=== PATIENT | female | born 1980 | race Hispanic/Latino ===

== ENCOUNTER 2022-07-02 21:21 | Observation (INO) | payer SELFPAY ==
[~2022-07-02 21:21] MED LIST: Iopamidol-370 76% 500 ML 1 ML ONE
[2022-07-02 22:09] LABS: #Lymphocytes 1.9 thou/uL (1.20-3.40); #Monocytes 0.7 thou/uL (0.11-0.59); #Neutrophils 6.7 thou/uL (1.40-6.50); %Basophils 0.5 % (0.0-1.0); %Eosinophils 0.4 % (0.0-10.0); %Lymphocytes 20.3 % (21.0-51.0); %Monocytes 7.6 % (0.0-10.0); %Neutrophils 71.3 % (42.0-75.0); Hemoglobin 12.3 g/dL (12.0-16.0); Mean Corpuscular HGB CONC 33.2 g/dL (32.0-36.0); Mean Corpuscular Hemoglobin 28.9 pg (27.0-31.0); Mean Platelet Volume 8.1 fL (7.4-10.4); Platelet Count 287 10x3/uL (130-400); RBC Distribution Width 13.8 % (11.5-14.5); Red Blood Cell (RBC) Count 4.25 mill/uL (4.20-5.40); White Blood Cell (WBC) Count 9.3 10x3/uL (4.8-10.8)
[2022-07-02 22:30] LABS: ALT (SGPT) 197 U/L (8-55); AST (SGOT) 366 U/L (5-34); Albumin 4.2 g/dL (3.5-5.0); Alkaline Phosphatase 125 U/L (40-110); Anion Gap 15 mmol/L (10-20); BUN (Urea Nitrogen) 11 mg/dL (7.0-18.7); Bilirubin, Total 0.6 mg/dL (0.2-1.2); Calc. Creatinine Clearance 0 mL/min (70-130); Carbon Dioxide 22 mmol/L (22-29); Chloride 107 mmol/L (98-107); Estimated GFR 108; Globulin 3.7 g/dL (2.4-3.5); Glucose 98 mg/dL (70-105); Lipase 57 U/L (8-78); Potassium 3.6 mmol/L (3.5-5.1); Protein, Total 7.9 g/dL (6.0-8.3); Sodium 140 mmol/L (136-145)
[2022-07-02 22:52] LABS: BHCG - Serum Negative (NEGATIVE); Pregs Control Background? CLEAR/WHITE (CLR/WHITE); Pregs Control Bar Appear? YES (CONTROL BAR)
[2022-07-02] MEDS ORDERED: Ondansetron PF 4 MG/2 ML Vial ONE (23:20)
[2022-07-02] MEDS ORDERED: Ketorolac Tromethamine 30 MG/ML VIAL ONE (23:20)
[2022-07-02 23:52] LABS: Bilirubin Negative (Negative); Blood, Urine Negative (Negative); Clarity Turbid (Clear); Glucose, Urine (Dipstick) Normal (Negative); Ketone, Urine Negative (Negative); Leukocyte Negative Leu/uL (Negative); Nitrite Negative (Negative); Protein, Urine (Dipstick) 10 mg/dL (Neg-Trace); Specific Gravity, Urine 1.029 (1.002-1.036); Urobilinogen Normal mg/dL (Less than 2)
[2022-07-03] MEDS ORDERED: Morphine 4 MG/ML VIAL ONE (01:01)
[2022-07-03] MEDS ORDERED: Piperacillin/Tazobactam 3.375 GM VIAL ONE ×2 (02:22→13:39)
[2022-07-03 05:08] VITALS: BMI 33.7
[2022-07-03] MEDS ORDERED: Morphine 2 MG/ML VIAL SLOW IVP PRN (05:21)
[2022-07-03] MEDS ORDERED: Ketorolac Tromethamine 30 MG/ML VIAL IVP PRN ×2 (05:21→07:45)
[2022-07-03] MEDS ORDERED: Ondansetron ODT 4 MG TAB SL PRN (05:30)
[2022-07-03] MEDS ORDERED: Ondansetron PF 4 MG/2 ML Vial IVP PRN ×2 (05:30→16:30)
[2022-07-03] MEDS ORDERED: Sodium Chloride 0.9% 1,000 ML IV SCH (05:30)
[2022-07-03] MEDS ORDERED: Piperacillin/Tazobactam 3.375 GM in Sodium Chloride 0.9% 100 ML IVPB SCH (06:00)
[2022-07-03 06:34] LABS: SARS-CoV-2 NAA Rapid Test Not Detected (NotDetected)
[2022-07-03] MEDS ORDERED: Morphine 4 MG/ML VIAL SLOW IVP PRN ×2 (07:45→16:30)
[2022-07-03] MEDS ORDERED: Sodium Chloride 0.9% 100 ML ONE (13:39)
[2022-07-03] MEDS ORDERED: Iopamidol 30 ML ONE (13:57)
[2022-07-03] MEDS ORDERED: Bupivacaine/Epinephrine 0.25% 30 ML VIAL ONE (13:57)
[2022-07-03] MEDS ORDERED: ePHEDrine 50 MG/ML VIAL ONE (14:17)
[2022-07-03] MEDS ORDERED: Glycopyrrolate 0.2 MG/ML 5 ML SYRINGE ONE (14:17)
[2022-07-03] MEDS ORDERED: Ketorolac Tromethamine 30 MG/ML VIAL ONE (14:17)
[2022-07-03] MEDS ORDERED: Ondansetron PF 4 MG/2 ML Vial ONE (14:17)
[2022-07-03] MEDS ORDERED: Rocuronium Bromide 10 MG/ML (10ML VIAL) ONE (14:17)
[2022-07-03] MEDS ORDERED: PROPOFOL 200 MG/20 ML VIAL ONE (14:17)
[2022-07-03] MEDS ORDERED: Lidocaine 1% PF 5 ML VIAL ONE (14:17)
[2022-07-03] MEDS ORDERED: NEOSTIGMINE 3 MG/3 ML SYR 3 MG/3 ML SYRINGE ONE (14:17)
[2022-07-03] MEDS ORDERED: Dexamethasone 20 MG/5 ML VIAL ONE (14:17)
[2022-07-03] MEDS ORDERED: Ondansetron HCl/PF 4 MG/2 ML Vial IVP PRN (15:08)
[2022-07-03] MEDS ORDERED: Promethazine HCl 25 MG/ML VIAL IM PRN ×2 (15:08→16:30)
[2022-07-03] MEDS ORDERED: SUGAMMADEX SODIUM 200 MG/2 ML VIAL ONE (15:11)
[2022-07-03] MEDS ORDERED: Mag-Al 1200 mg/1200 mg/30 ML UDCUP PO PRN (16:30)
[2022-07-03] MEDS ORDERED: hydrALAZINE 20 MG/ML VIAL SLOW IVP PRN (16:30)
[2022-07-03] MEDS ORDERED: Calcium Carbonate 500 MG ChewTAB PO PRN (16:30)
[2022-07-03] MEDS ORDERED: Dextrose 50% Abboject 50 ML SYRINGE SLOW IVP PRN (16:30)
[2022-07-03] MEDS ORDERED: Dextrose 5% in Water 1,000 ML IV PRN (16:30)
[2022-07-03] MEDS ORDERED: Ipratropium/Albuterol 3 ML NEB NEB PRN (16:30)
[2022-07-03] MEDS: Sodium Chloride 0.9% 1,000 ML IV SCH ×2 (19:12→22:18)
[2022-07-03] MEDS: Famotidine/PF 20 mg/2ml Vial SLOW IVP SCH (20:35)
[2022-07-03] MEDS: HYDROcodone/Acetaminophen 10/325 mg Tablet PO PRN (20:43)
[2022-07-03] MEDS: Famotidine 20 MG TAB PO SCH (20:45)
[2022-07-04] MEDS: HYDROcodone/Acetaminophen 10/325 mg Tablet PO PRN (07:44)
[2022-07-04] MEDS: Famotidine 20 MG TAB PO SCH (07:46)
[2022-07-04 08:25] VITALS: BP 98/63; TEMP 98.9
[2022-07-04] MEDS: Famotidine/PF 20 mg/2ml Vial SLOW IVP SCH (09:03)
[2022-07-06] MEDS ORDERED: FLU VACC QS2022-23(6MOS UP)/PF 60 MCG/0.5 ML SYRINGE IM ONE (09:00)
== END 2022-07-04 11:05 | disposition home or self-care (01) ==
LOC: ERS 21:21 → SURG A 07-03 01:19
PROVIDERS: ADMIT Surgery; ATTEND Surgery
PROC: 0FT44ZZ Resection of Gallbladder, Percutaneous Endoscopic Approach (ICD-10-PCS; principal; 2022-07-03)
PROC: BF101ZZ Fluoroscopy of Bile Ducts using Low Osmolar Contrast (ICD-10-PCS; 2022-07-03)
DX: K80.12 Calculus of gallbladder with acute and chronic cholecystitis without obstruction (principal); R79.89 Other specified abnormal findings of blood chemistry; Z20.822 Contact with and (suspected) exposure to COVID-19
CPT/HCPCS: 36415; 47532; 74177; 76705; 80053; 81003; 83690; 84703; 85025; 87086; 88304; 93005; 96365; 96366; 96375; 96376; C1889; G0378; J1100; J1885; J2270; J2405; J2543; J2704; J3490; J7050; Q9967; U0002